=== PATIENT | male | born 1950 | race Caucasian/White ===

== ENCOUNTER 2020-08-28 11:21 | Observation (INO) | payer MEDICARE ==
[~2020-08-28] VITALS: Ht 182.9 cm; Wt 86.5 kg
[2020-08-28] MEDS ORDERED: OMEP-218 PO (11:45)
[2020-08-28] MEDS ORDERED: VALS160T3 PO (11:45)
[2020-08-28] MEDS ORDERED: FINA5TAB2 PO (11:45)
[2020-08-28] MEDS ORDERED: FLOM0.4C39 PO (11:45)
[2020-08-28 13:39] LABS: BASO % 0.3 % (0.0-1.0); EOS # 0.1 10^3/uL (0.0-0.5); EOS % 0.9 % (0.0-3.0); HEMATOCRIT 35.7 % (42.0-52.0); HEMOGLOBIN 10.9 g/dl (13.5-17.5); LYMPH % 9.1 % (24.0-44.0); MEAN CORPUSCULAR HEMOGLOBIN 23.3 pg (27.0-33.0); MEAN CORPUSCULAR HGB CONC 30.5 g/dl (32.0-36.5); MEAN CORPUSCULAR VOLUME 76.3 fl (80.0-96.0); MONO # 0.7 10^3/uL (0.0-0.8); MONO % 5.7 % (2.0-8.0); NEUTROPHILS # 9.6 10^3/uL (1.5-8.5); NEUTROPHILS % 83.4 % (36.0-66.0); PLATELET COUNT, AUTOMATED 289 10^3/uL (150-450); RED BLOOD COUNT 4.68 10^6/uL (4.30-6.10); WHITE BLOOD COUNT 11.5 10^3/uL (4.0-10.0)
[2020-08-28 13:48] LABS: INR 1.05; PARTIAL THROMBOPLASTIN TIME 26.8 SECONDS (24.2-38.5)
[2020-08-28 14:07] LABS: ALBUMIN 3.5 GM/DL (3.2-5.2); ALT/SGPT 30 U/L (12-78); BILIRUBIN,DIRECT 0.3 MG/DL (0.0-0.2); BILIRUBIN,TOTAL 0.5 MG/DL (0.2-1.0); BLOOD UREA NITROGEN 19 MG/DL (7-18); CALCIUM LEVEL 8.3 MG/DL (8.8-10.2); CARBON DIOXIDE LEVEL 28 MEQ/L (21-32); CHLORIDE LEVEL 101 MEQ/L (98-107); CK-MB VALUE MASS 1.5 NG/ML (<3.6); CPK CREATINE PHOSPHOKINASE 95 U/L (39-308); GLOMERULAR FILTRATION RATE > 60.0 (>42); GLUCOSE, FASTING 104 MG/DL (70-100); LIPASE 132 U/L (73-393); MB/CK RELATIVE INDEX 1.58 (< OR =4); POTASSIUM SERUM 3.5 MEQ/L (3.5-5.1); SODIUM LEVEL 136 MEQ/L (136-145); TOTAL PROTEIN 6.5 GM/DL (6.4-8.2); TROPONIN I < 0.02 NG/ML (< 0.10)
--- NOTE | 2020-08-28 14:11 | REP ---
INDICATION: Abdominal Pain COMPARISON: None. TECHNIQUE: PA/Lateral FINDINGS: Lungs: Clear, no infiltrate. Heart: Normal in size. Mediastinum: Mediastinal silhouette unremarkable. Pleural angles: Unremarkable.. Bones and soft tissues: Unremarkable. IMPRESSION: No acute pulmonary disease. <Electronically signed by Bird Walsh > 08/28/20 [id number]
[2020-08-28] MEDS ORDERED: ISOVUE-370 76% 100ML VIAL As Ordered ONE (14:28)
[2020-08-28 15:44] LABS: RSV AMPLIFICATION NEGATIVE (NEGATIVE)
--- NOTE | 2020-08-28 16:28 | REP ---
INDICATION: chest pain. COMPARISON: A PA and lateral chest earlier today. TECHNIQUE: CT study of the chest with IV contrast, CT angiography. FINDINGS: There are no emboli in the pulmonary trunk or central pulmonary arteries. There are no emboli in the pulmonary artery lobar segment branches. There are no infiltrates. There are no pleural effusions. There are no nodules or masses. There is minor atelectasis posteriorly in the lingula and in the lower lobes. There is a fixed 7.0 cm hiatal hernia. The thoracic aorta is unremarkable. Cardiac size is normal. There is no pericardial effusion. IMPRESSION: There are no pulmonary emboli. There are no infiltrates, effusions, nodules or masses. There is a fixed hiatal hernia. The thoracic aorta is unremarkable. <Electronically signed by Bird Olsen > 08/28/20 [id number]
--- NOTE | 2020-08-28 16:39 | REP ---
INDICATION: chest pain. COMPARISON: None. TECHNIQUE: CT of the abdomen and pelvis with IV contrast without bowel contrast performed contiguously with the chest CT this same date. FINDINGS: There is a fixed hiatal hernia measuring approximately 7 cm in diameter. The hepatic parenchyma is unremarkable except for a small hypodensity in the medial segment of the left lobe measuring 7 mm, nonspecific, likely a cyst or small hemangioma. The gallbladder, pancreas and spleen are unremarkable. The adrenals are unremarkable. The abdominal aorta is unremarkable. There is no periaortic adenopathy or mass. Pelvis: The appendix is unremarkable. There is no ascites or adenopathy. The pelvic bowel loops are unremarkable. There is a right hip arthroplasty with beam hardening artifact resulting in image degradation in the pelvis. IMPRESSION: There is no bowel distention or obstruction. There is no adenopathy, mass or ascites. The abdominal aorta is unremarkable. There is no hydronephrosis. Right hip arthroplasty. Otherwise, essentially negative CT of the abdomen and pelvis. <Electronically signed by Bird Olsen > 08/28/20 0816
[2020-08-28] MEDS ORDERED: ASPI81TA26 PO (16:48)
[2020-08-28] MEDS ORDERED: D31000TA2 PO (16:48)
[2020-08-28] MEDS ORDERED: MAALOX 30 ML SUSP *UDC PO PRN (17:50)
[2020-08-28] MEDS ORDERED: ACETAMINOPHEN TAB 650MG DOSE (2X325MG) PO PRN (17:50)
[2020-08-28] MEDS ORDERED: MOM 30ML SUSPENSION UDC PO PRN (17:50)
[2020-08-28] MEDS ORDERED: VALSARTAN 80 MG TAB (DIOVAN) PO ONE (18:00)
--- NOTE | 2020-08-28 18:05 | HPEPDOC ---
[facility] Medical History & Physical Date of Admission Aug 28, 2020 Date of Service: Aug 28, 2020 History and Physical CHIEF COMPLAINT: Lower back discomfort HISTORY OF PRESENT ILLNESS: 69-year-old male history of hypertension comes to the hospital because he was feeling unwell during his drive from [place] on a camping trip and was driving through [place]. Patient says he was seated for a couple of hours in the car a nd started feeling lower back discomfort and had to stop to rest he noticed it was associated with some lower abdominal discomfort it lasted approximately 30 minutes and then resolved he also noticed the very briefly he just felt an overall sense of being unwell included feeling nauseous and clamy. This spontaneously resolved. He decided to come to the hospital to be evaluated. In the hospital he was feeling asymptomatic and back to his normal baseline he was noted to have episodes of bradycardia. When asked about this patient says that he's always had a low heart rate for many years. He does note that for a few minutes while he was in the hospital he thought he felt his symptoms above recur but spontaneous a resolved once again. He does endorse that his low back feels stiff from sitting in the car for long hours. He denies any chest pain at any point denies any shortness of breath and currently denies abdominal pain. PAST MEDICAL/SURGICAL HISTORY: Hypertension BPH History of pulmonary embolism generally 2019 performed s/p hip replacement 12 days prior treated with 6 months of eliquis Hip replacement generally 2019 Hiatal hernia repair SOCIAL HISTORY: Endorses drinking beer a few times a week Denies tobacco use currently quit smoking over 40 years ago Denies illicit drug use FAMILY HISTORY: Reviewed and none contributory to this admission Mother has a history of colon cancer ALLERGIES: Please see below. REVIEW OF SYSTEMS: 10 point review of systems complete all negative otherwise stated in HPI HOME MEDICATIONS: Please see below. PHYSICAL EXAMINATION: Constitutional: Awake and alert, in no apparent distress ENT: Sclera are clear. Mucosa is moist. Respiratory: Lungs CTA bilaterally. No respiratory distress. Cardiovascular: RRR S1 and S2 are normal, no murmur Gastrointestinal: Abdomen is soft, non distended, non tender, BS present. Musculoskeletal: No lower extremity edema. Neurologic: No focal neurological deficit. Mental Status: A&O x3, normal affect Skin: Warm, dry LABORATORY DATA: See below. IMAGING: See chart MICROBIOLOGY: Please see below. ASSESSMENT/PLAN # Asymptomatic Bradycardia: observation on telemetry. Patient tells me he is al ways had a low heart rate from a young age. He is asymptomatic from it. # Lower back discomfort: Associated with some lower abdominal discomfort. This could be MSK from sitting in the car for long hours. Admitted for observation symptom medical management. CT abdomen/pelvis reviewed negative. # Hypertension: Continue home meds. Monitor and titrate # DVT prophylaxis: Lovenox A Yousef Hospitalist Vital Signs Vital Signs Date Time Temp Pulse Resp B/P (MAP) Pulse Ox O2 Delivery O2 Flow Rate FiO2 08/28/20 17:51 61 98 08/28/20 17:45 144/65 (91) 08/28/20 11:35 97.4 18 Room Air Laboratory Data Labs 24H Laboratory Tests 2 08/28/20 12:01: Immature Granulocyte % (Auto) 0.6, Neutrophils (%) (Auto) 83.4H, Lymphocytes (%) (Auto) 9.1L, Monocytes (%) (Auto) 5.7, Eosinophils (%) (Auto) 0.9, Basophils (%) (Auto) 0.3, Neutrophils # (Auto) 9.6H, Lymphocytes # (Auto) 1.0L, Monocytes # (Auto) 0.7, Eosinophils # (Auto) 0.1, Basophils # (Auto) 0.0, Nucleated Red Blood Cells % (auto) 0.0, Prothrombin Time 14.0, Prothromb Time International Ratio 1.05, Activated Partial Thromboplast Time 26.8, Anion Gap 7L, Glomerular Filtration Rate > 60.0, Calcium Level 8.3L, Total Bilirubin 0.5, Direct Bilirubin 0.3H, Aspartate Amino Transf (AST/SGOT) 47H, Alanine Aminotransferase (ALT/SGPT) 30, Alkaline Phosphatase 67, Total Creatine Kinase 95, Creatine Kinase MB 1.5, Creatine Kinase MB Relative Index 1.58, Troponin I < 0.02, Total Protein 6.5, Albumin 3.5, Albumin/Globulin Ratio 1.2, Lipase 132 08/28/20 14:41: Coronavirus (COVID-19)(PCR) NEGATIVE, Influenza Type A (RT-PCR) NEGATIVE, Influenza Type B (RT-PCR) NEGATIVE, Respiratory Syncytial Virus (PCR) NEGATIVE 08/28/20 16:58: Troponin I < 0.02 CBC/BMP Laboratory Tests 08/28/20 12:01 Home Medications Scheduled Aspirin (Aspirin EC) 81 Mg Tablet.dr, 81 MG PO DAILY Cholecalciferol (Vitamin D3) (Vitamin D3) 1,000 Unit Tablet, 2,000 UNITS PO DAILY Finasteride (Finasteride) 5 Mg Tablet, 5 MG PO DAILY Omeprazole (Omeprazole) 20 Mg Capsule.dr, 20 MG PO DAILY Tamsulosin HCl (Flomax) 0.4 Mg Capsule, 0.4 MG PO DAILY Valsartan/Hydrochlorothiazide (Valsartan-Hctz 160-25 mg Tab) 1 Each Tablet, 1 TAB PO DAILY Allergies Coded Allergies: No Known Drug Allergies (Verified Allergy, Unknown, 08/28/20) A-FIB/CHADSVASC A-FIB History Current/History of A-Fib/PAF?: No SCOTT DA SILVA MD Aug 28, 2020 18:05
--- NOTE | 2020-08-28 20:16 | ECGEPIP ---
[facility] - ED Test Date: 2020-08-28 Pat Name: JESSICA AREVALO Department: Room: - Gender: Male Interventionist: aniya : [id number] Requested By: SIMNOE Mckenzie Order Number: [id number] Reading MD: Héctor Louis Measurements Intervals [place] Rate: 47 P: 17 MA: 150 QRS: 2 QRSD: 88 T: 16 QT: 478 QTc: 423 Interpretive Statements Sinus bradycardia with sinus arrhythmia BASELINE ARTIFACT AFFECTS INTERPRETATION NO PRIORS FOR COMPARISON Electronically Signed on 08-28-2020 20:16:29 EDT by Héctor Louis
[2020-08-28] MEDS: DOCUSATE SODIUM 100MG CAPSULE PO SCH (21:00)
[2020-08-28 22:00] VITALS: BP 157/70
[2020-08-29 06:00] VITALS: BP 129/69
[2020-08-29 06:05] LABS: HEMOGLOBIN 10.7 g/dl (13.5-17.5); MEAN CORPUSCULAR HEMOGLOBIN 23.1 pg (27.0-33.0); MEAN CORPUSCULAR HGB CONC 30.6 g/dl (32.0-36.5); MEAN CORPUSCULAR VOLUME 75.4 fl (80.0-96.0); PLATELET COUNT, AUTOMATED 265 10^3/uL (150-450); RED BLOOD COUNT 4.64 10^6/uL (4.30-6.10); WHITE BLOOD COUNT 5.6 10^3/uL (4.0-10.0)
[2020-08-29 06:25] LABS: BLOOD UREA NITROGEN 14 MG/DL (7-18); CALCIUM LEVEL 8.4 MG/DL (8.8-10.2); CARBON DIOXIDE LEVEL 30 MEQ/L (21-32); CHLORIDE LEVEL 106 MEQ/L (98-107); GLOMERULAR FILTRATION RATE > 60.0 (>42); GLUCOSE, FASTING 92 MG/DL (70-100); POTASSIUM SERUM 3.7 MEQ/L (3.5-5.1); SODIUM LEVEL 141 MEQ/L (136-145)
[2020-08-29 08:40] VITALS: BP 139/68
[2020-08-29] MEDS: DOCUSATE SODIUM 100MG CAPSULE PO SCH (08:42)
[2020-08-29] MEDS ORDERED: VALSARTAN 80 MG TAB (DIOVAN) PO SCH (09:00)
[2020-08-29] MEDS ORDERED: TAMSULOSIN 0.4 MG CAP PO SCH (09:00)
[2020-08-29] MEDS ORDERED: ENOXAPARIN 40MG/0.4ML SYRINGE (J1650 PER 10MG) SC SCH (09:00)
[2020-08-29] MEDS ORDERED: ASPIRIN 81MG ENTERIC TABLET PO SCH (09:00)
[2020-08-29] MEDS ORDERED: OMEPRAZOLE 20 MG CAP PO SCH (09:00)
[2020-08-29] MEDS ORDERED: FINASTERIDE 5 MG TAB PO SCH (09:00)
--- NOTE | 2020-08-29 14:01 | IPNPDOC ---
Text Note Date of Service The patient was seen on 08/29/20. NOTE Subjective: Patient seen and examined this morning at bedside. Tells me feeling well hasn't had any episodes of back or abdominal feels back to normal denies any chest pain or shortness of breath. No acute overnight events Objective: Constitutional: Awake and alert, in no apparent distress ENT: Sclera are clear. Mucosa is moist. Respiratory: Lungs CTA bilaterally. No respiratory distress. Cardiovascular: RRR S1 and S2 are normal, no murmur Gastrointestinal: Abdomen is soft, non distended, non tender, BS present. Musculoskeletal: No lower extremity edema. Neurologic: No focal neurological deficit. Mental Status: A&O x3, normal affect Skin: Warm, dry Assessment/plan: # Asymptomatic Bradycardia: observation on telemetry no evidence. Patient tells me he is always had a low heart rate from a young age. He is asymptomatic from it. He should follow-up with his PCP after discharge. # Lower back discomfort: Associated with some lower abdominal discomfort. This could be MSK from sitting in the car for long hours. This has resolved today. Can be discharged home and follow-up with PCP. CT abdomen/pelvis reviewed negative. # Hypertension: Continue home meds. Monitor and titrate # DVT prophylaxis: Carmen Da Silva Hospitalist Luana DRIVER I+O [facility] I+O Laboratory Tests 08/29/20 05:46 Vital Signs Date Time Temp Pulse Resp B/P (MAP) Pulse Ox O2 Delivery O2 Flow Rate FiO2 08/29/20 08:40 139/68 08/29/20 06:00 98.3 56 18 96 Room Air I&O- Last 24 Hours up to 6 AM 08/29/20 06:00 Intake Total 720 ml Output Total 950 ml Balance -230 ml SCOTT DA SILVA MD Aug 29, 2020 14:01
== END 2020-08-29 11:05 | disposition home or self-care (01) ==
LOC: M ED 11:21 → EDBD 11:21 → M ED INP 11:22 → ENRESERV 18:55 → M MSPAV 21:31
PROVIDERS: ADMIT Family Medicine; ATTEND Family Medicine
DX: R00.1 Bradycardia, unspecified (principal); M54.5 Low back pain; R10.30 Lower abdominal pain, unspecified; R55 Syncope and collapse; I10 Essential (primary) hypertension; N40.0 Benign prostatic hyperplasia without lower urinary tract symptoms; Z86.711 Personal history of pulmonary embolism; Z96.649 Presence of unspecified artificial hip joint; Z79.899 Other long term (current) drug therapy; Z79.82 Long term (current) use of aspirin; Z87.891 Personal history of nicotine dependence
CPT/HCPCS: 36415; 71046; 71275; 74177; 80048; 80076; 82550; 82553; 83690; 84484; 85025; 85027; 85610; 85730; 87631; 93005; 93041; 96372; 99285; G0378; J1650; Q9967